=== PATIENT | female | born 1990 | race Caucasian/White ===

== ENCOUNTER 2019-01-01 08:52 | Emergency (ER) | payer MEDICAID ==
[~2019-01-01] VITALS: Ht 149.9 cm; Wt 61.0 kg
[2019-01-01 08:59] VITALS: Ht 149.9 cm; Wt 61.0 kg
[2019-01-01] MEDS ORDERED: HC30CR25 TOP (09:34)
--- NOTE | 2019-01-01 09:45 | ERD ---
ER Documentation Chief Complaint Chief Complaint right knee pain/injury HPI 28-year-old female presenting with pain to the skin of the right knee. She states 1 month ago she fell and scraped her knee and it was a deep cut. She had some skin changes noted over the wound which becomes itchy and painful. Denies other medical problems. NKDA. Surgical history denies. Social history denies ROS All systems reviewed and are negative except as per history of present illness. Medications Home Meds Active Scripts Hydrocortisone* Topical (Hydrocortisone* Topical) 2.5%-28.3 Gm Cream..g., 1 APPLIC TOP BID, #1 TUB Prov:TERELL BURRELL PA-C 01/01/19 FmHx Family History: No diabetes, No coronary disease, No other Physical Exam Vitals Vital Signs Date Temp Pulse Resp B/P (MAP) Pulse Ox O2 O2 Flow FiO2 Time Delivery Rate 01/01/19 98.1 61 18 115/54 98 08:59 (74) Physical Exam GENERAL: The patient is well-appearing, well-nourished, in no acute distress CHEST: Clear to auscultation bilaterally. There are no rales, wheezes or rhonchi. HEART: Regular rate and rhythm. No murmurs, clicks, rubs or gallops. EXTREMITIES: Equal pulses bilaterally. There is no peripheral clubbing, c yanosis or edema. No focal swelling or erythema. Full range of motion. NEUROLOGIC: Alert and oriented. Cranial nerves II through XII intact. Motor strength in all 4 extremities with 5 out of 5 strength. Sensation grossly intact. Normal speech and gait. SKIN: Keloid scar noted over the right knee with no surrounding erythema. No fluctuance on exam. Procedures/MDM MDM: 28-year-old female presenting with pain to the right knee. Patient has skin changes noted which are keloids to the right knee. I have low suspicion for abscess. I have low suspicion for septic joint. Patient is discharged with strict ER precautions and told to follow-up with primary care within 1 to 2 days for close evaluation. Patient is told symptoms change or worsen to return immediately to the ER. All questions answered at discharge Departure Diagnosis: Primary Impression: Keloid Condition: Stable Patient Instructions: Wound Care Referrals: [facility] YOU HAVE RECEIVED A MEDICAL SCREENING EXAM AND THE RESULTS INDICATE THAT YOU DO NOT HAVE A CONDITION THAT REQUIRES URGENT TREATMENT IN THE EMERGENCY DEPARTMENT. FURTHER EVALUATION AND TREATMENT OF YOUR CONDITION CAN WAIT UNTIL YOU ARE SEEN IN YOUR DOCTORS OFFICE WITHIN THE NEXT 1-2 DAYS. IT IS YOUR RESPONSIBILITY TO MAKE AN APPOINTMENT FOR FOLOW-UP CARE. IF YOU HAVE A PRIMARY DOCTOR --you should call your primary doctor and schedule an appointment IF YOU DO NOT HAVE A PRIMARY DOCTOR YOU CAN CALL OUR PHYSICIAN REFERRAL HOTLINE AT IF YOU CAN NOT AFFORD TO SEE A PHYSICIAN YOU CAN CHOSE FROM THE FOLLOWING [facility] [address] [facility] [address] [facility] [facility] [address] [facility] [address] [facility] [address] [facility]. [facility]. [address] Additional Instructions: FOLLOW UP WITH YOUR PRIMARY CARE PHYSICIAN TOMORROW.Return to this facility if you are not improving as expected. TERELL BURRELL PA-C January 01, 2019 09:45
== END 2019-01-01 10:00 | disposition home or self-care (01) ==
LOC: FTE 08:52
DX: L91.0 Hypertrophic scar (principal)
CPT/HCPCS: 99282